=== PATIENT | male | born 1945 | race Hispanic/Latino ===

== ENCOUNTER 2016-11-02 08:36 | Day surgery (SDC) | payer MEDICARE ==
[2016-11-01 08:25] VITALS: BMI 32.3
[2016-11-02 09:03] LABS: BASO # 0.02 K/mm3 (0.0-2.0); BASO % 0.4 % (0.0-3.0); EOS # 0.1 (0.0-0.7); GRAN # 2.11 (1.4-6.5); GRAN % 45.7 % (50.0-68.0); HEMOGLOBIN 14.2 gm/dL (14.0-18.0); LYMPH # 1.8 (1.2-3.4); MEAN CELL VOLUME 105.5 fL (80.0-105.0); MEAN CORPUSCULAR HEMOGLOBIN 35.7 pg (25.0-35.0); MEAN CORPUSCULAR HGB CONC 33.8 g/dl (31.0-37.0); MEAN PLATELET VOLUME 9.8 fl (7.0-11.0); MONO # 0.6 (0.1-0.6); MONO % 13.9 % (1.0-6.0); PLATELET COUNT 193 10^3/uL (120.0-450.0); RBC 3.98 10^6/uL (3.5-6.1); RED CELL DISTRIBUTION WIDTH 12.4 % (11.5-14.5); WHITE BLOOD COUNT 4.6 10^3/ul (4.5-11.0)
[2016-11-02 09:06] LABS: BLOOD UREA NITROGEN 20 mg/dL (7-21); CALCIUM 8.8 mg/dL (8.4-10.5); GFR AFRICAN-AMERICAN > 60; GFR NON-AFRICAN AMERICAN > 60; HDL CHOLESTEROL 60 mg/dL (29-60)
[2016-11-02 09:08] LABS: INR 0.97 (0.93-1.08); PARTIAL THROMBOPLASTIN TIME 26.4 Seconds (23.7-30.8); PROTHROMBIN TIME 10.5 Seconds (9.9-11.8)
[2016-11-02 09:14] VITALS: RESP 18; O2SAT 99
[2016-11-02 09:23] LABS: LDL CHOLESTEROL 78 mg/dL (0-129)
[2016-11-02] MEDS ORDERED: Lidocaine 2% Inj (20ml) ONE ×2 (11:01→11:53)
[2016-11-02] MEDS ORDERED: Midazolam 2 MG/2 ML VIAL ONE (11:12)
[2016-11-02] MEDS ORDERED: Iohexol 350 MG/100 ML VIAL ONE ×2 (12:02→12:09)
[2016-11-02] MEDS ORDERED: Iohexol 350mgl/ml 50 ML ONE (12:09)
[2016-11-02] MEDS ORDERED: Sodium Chloride 0.45% 1,000 ML IV SCH (12:45)
[2016-11-02 19:14] VITALS: BP 132/68; PULSE 68; TEMP 98.2
--- NOTE | 2016-11-08 09:44 | CARD ---
APPROVED REPORT HISTORY The patient is a 70 year-old m with a history of : previous [place] (> 7 days), most recent EF: 40%. (EF Method: Radionuclide), previous diagnostic cath, previous PCI (The PCI date was ), hypertension , dyslipidemia . INDICATION The indication(s) include : positive stress test, stable angina (Silent [place](no time period)), chest pain. CASE TECHNIQUE The patient was brought electively to the Cardiac Catheterization Laboratory in a fasting state and was prepped and draped in a sterile manner. The right femoral groin was infiltrated with 1% Lidocaine subcutaneous anesthesia. A 6 sheath was inserted into the right femoral artery without difficulty. Coronary angiography was performed using coronary diagnostic catheters. The left coronary system was accessed and visualized with a Diagnostic catheter. The right coronary system was accessed and visualized with a Diagnostic catheter. The left ventricle was accessed and visualized with a Diagnostic catheter. Left ventricular/Aortic Valve gradient assessed on pullback. Closure device was deployed with a 6 Fr Mynx without any complications. Vessel Analysis The patient's coronary anatomy is right dominant. The left main coronary artery is a small size vessel . There is a 30% stenosis in the ostial segment. The left main bifurcates to the left anterior descending and circumflex. The left anterior descending artery is a medium size vessel . There is a 30% stenosis in the mid segment. The first diagonal branch is a medium size vessel . There is a 30% stenosis in the proximal segment. The circumflex artery is a small size vessel . There is a 50% stenosis in the distal segment. The right coronary artery is a large size vessel . There is a 70% stenosis in the mid segment. In stent. The right posterolateral branch is a medium size vessel . There is a 70% stenosis in the proximal segment. Left Ventricle The left ventricle is normal in size with decreased contractility. The left ventricular ejection fraction is estimated to be 40%. Inferior hypokenis. PCI Technique Lesion Anticoagulation was achieved with Heparin. Percutaneous coronary intervention was performed on the mid right coronary artery. The lesion stenosis prior to intervention was 70% with PINKY 3 flow. A 6 Guide Catheter was used to engage the right ostium. BALLOON DILATION A Balloon catheter angioscore was inserted and inflated up to 20atm for 30seconds. Final angiography reveals 10 % stenosis with PINKY 3 flow. Conclusion In stent stenois of the RCA. Small vessel of CAD. Mild depressed left ventricular function. Successful PTCA of RCA. Recommendations Aggressive Medical Therapy Weight Loss Reduction ProgramMedical Therapy Consider PCI of PLV
== END 2016-11-02 20:15 | disposition home or self-care (01) ==
LOC: CATH 08:36 → 2RSO 12:59 → CATH 20:15
PROVIDERS: ATTEND Internal Medicine Cardiovascular Disease
DX: I25.119 Atherosclerotic heart disease of native coronary artery with unspecified angina pectoris (principal); I10 Essential (primary) hypertension; I25.2 Old myocardial infarction; Z95.5 Presence of coronary angioplasty implant and graft; E78.5 Hyperlipidemia, unspecified; R94.39 Abnormal result of other cardiovascular function study
CPT/HCPCS: 36415; 80048; 80061; 85025; 85175; 85610; 85730; 86850; 86900; 92920; 93458; C1713; C1725 ×2; C1760; C1769 ×2; C1887 ×2; C2629; J1644 ×2; J2250; J3010; J7030 ×2; J7040; Q9967 ×3